=== PATIENT | male | born 1965 | race American Indian/Alaskan Native ===

== ENCOUNTER 2019-02-03 16:05 | Emergency (ER) | payer SELFPAY ==
--- NOTE | 2019-02-03 17:09 | Event Note ---
ED Screening Note Date of service: 02/03/19 Time: 17:07 ED Screening Note: This is a 53 y.o. M. that presents to the ER with left sided facial swelling and pain for 2-3 days. Patient states he was originally having dental pain on the left side a few months ago. PMH HTN This initial assessment/diagnostic orders/clinical plan/treatment(s) is/are subject to change based on patients health status, clinical progression and re- assessment by fellow clinical providers in the ED. Further treatment and workup at subsequent clinical providers discretion. Patient/guardian urged not to elope from the ED as their condition may be serious if not clinically assessed and managed. Initial orders include:
--- NOTE | 2019-02-03 18:41 | Emergency Department Report ---
HPI - General Chief Complaint: Medical Clearance Time Seen by Provider: 02/03/19 17:07 - HPI HPI: Room 36 The patient is a 53-year-old male presenting with a chief complaint of tooth pain/facial pain and headache. Patient states he's had pain along his upper left teeth intimately for 2 months. Patient states last night he developed severe pain along the left maxillary sinus with radiation to the same tooth. Patient states she also developed headache and gives his headache score of 8/10. Patient states he noticed some facial swelling over the left maxillary sinus. Patient is to nausea and occasional vomiting for the past 3-4 weeks. ED Past Medical Hx - Past Medical History Previous Medical History?: No Additional medical history: sinus infection - Surgical History Past Surgical History?: Yes Additional Surgical History: back - Family History Family history: no significant - Social History Smoking Status: Never Smoker Substance Use Type: None (denies illicit drug use) - Medications Home Medications: Home Medications Medication Instructions Recorded Confirmed Last Taken Type Amoxicillin [Amoxicillin TAB] 875 mg PO BID #14 tablet 02/03/19 Unknown Rx HYDROcodone/APAP 5-325 [Meridian 1 - 2 each PO Q6HR PRN #14 tablet 02/03/19 Unknown Rx 5/325] Ibuprofen [Motrin 800 MG tab] 800 mg PO Q8HR PRN #20 tablet 02/03/19 Unknown Rx ED Review of Systems ROS: Stated complaint: FACE SWELLING/HEADACHES/HBP Other details as noted in HPI Constitutional: no symptoms reported Eyes: denies: eye pain ENT: other (facial pain) Respiratory: no symptoms reported Cardiovascular: denies: chest pain Endocrine: no symptoms reported Gastrointestinal: denies: abdominal pain Genitourinary: denies: dysuria Musculoskeletal: denies: back pain Neurological: headache Physical Exam - Physical Exam Vital Signs: Vital Signs 02/03/19 16:10 Temperature 97.8 F Pulse Rate 75 Respiratory 18 Rate Blood Pressure 134/98 [Right] O2 Sat by Pulse 99 Oximetry Physical Exam: GENERAL: The patient is well-developed well-nourished male lying on stretcher not appearing to be in acute distress. [] HEENT: Normocephalic. Atraumatic. Extraocular motions are intact. There is left maxillary tenderness to palpation. Tenderness to palpation Approximately tooth #11 with evidence of filling. There is no gingival erythema or swelling appreciated NECK: Supple. No meningitic signs are noted. There is no adenopathy noted. CHEST/LUNGS: Clear to auscultation. There is no respiratory distress noted. HEART/CARDIOVASCULAR: Regular. There is no tachycardia. There is no gallop rub or murmur. ABDOMEN: Abdomen is soft, nontender. Patient has normal bowel sounds. There is no abdominal distention. SKIN: There is no rash. There is no edema. There is no diaphoresis. NEURO: The patient is awake, alert, and oriented. The patient is cooperative. The patient has no focal neurologic deficits. The patient has normal speech. Cranial nerves II through XII grossly intact, no drift MUSCULOSKELETAL: There is no evidence of acute injury. ED Course Vital Signs 02/03/19 16:10 Temperature 97.8 F Pulse Rate 75 Respiratory 18 Rate Blood Pressure 134/98 [Right] O2 Sat by Pulse 99 Oximetry ED Medical Decision Making - Radiology Data Radiology results: report reviewed (CT head), image reviewed (CT head) [facility] [address] [place] [address] Cat Scan Report Signed Patient: TONI NANCE JR MR#: [id number] : 1965 Acct:[id number] Age/Sex: 53 / M ADM Date: 02/03/19 Loc: ED Attending Dr: Ordering Physician: VIRGINIA FAITH MD Date of Service: 02/03/19 Procedure(s): CT head/brain wo con Accession Number(s): [id number] cc: VIRGINIA FAITH MD CT HEAD WITHOUT CONTRAST INDICATION: headache. TECHNIQUE: All CT scans at this location are performed using CT dose reduction for ALARA by means of automated exposure control. COMPARISON: CT 11/09/2014. FINDINGS: HEMORRHAGE: None. EXTRA-AXIAL SPACES: Normal in size and morphology for the patient's age. VENTRICULAR SYSTEM: Normal in size and morphology for the patient's age. BRAIN PARENCHYMA: No acute findings. MIDLINE SHIFT OR HERNIATION: None. ORBITS: Normal as visualized. SOFT TISSUES OF HEAD: Normal. CALVARIUM: Normal. VISUALIZED PARANASAL SINUSES AND MASTOID AIR CELLS: Clear. ADDITIONAL FINDINGS: None. IMPRESSION: 1. No acute intracranial abnormality. Signer Name: Matthew Felix MD Signed: 02/03/2019 7:50 PM Workstation Name: [id number] Transcribed By: ERASTO Dictated By: Matthew Felix MD Electronically Authenticated By: Matthew Felix MD Signed Date/Time: 02/03/191949 DD/ 47 TD/TT: - Differential Diagnosis dental Amada, cranial mass, CHF Critical care attestation.: If time is entered above; I have spent that time in minutes in the direct care of this critically ill patient, excluding procedure time. ED Disposition Clinical Impression: Headache, Pain, dental Disposition: - TO HOME OR SELFCARE Is pt being admited?: No Does the pt Need Aspirin: No Condition: Stable Instructions: Acute Headache (ED) Prescriptions: Amoxicillin [Amoxicillin TAB] 875 mg PO BID #14 tablet Ibuprofen [Motrin 800 MG tab] 800 mg PO Q8HR PRN #20 tablet PRN Reason: Pain, Moderate (4-6) HYDROcodone/APAP 5-325 [Meridian 5/325] 1 - 2 each PO Q6HR PRN #14 tablet PRN Reason: Pain Referrals: [facility] [Outside] - 3-5 Days ROGER SHAFFER MD [Staff Physician] - 3-5 Days (Dr Shaffer is a primary physician. Please follow up with him to be established as a patient) Time of Disposition: 20:03
[2019-02-03 19:49] VITALS: BP 141/93
--- NOTE | 2019-02-03 19:54 | Cat Scan Report ---
CT HEAD WITHOUT CONTRAST INDICATION: headache. TECHNIQUE: All CT scans at this location are performed using CT dose reduction for ALARA by means of automated e xposure control. COMPARISON: CT 11/09/2014. FINDINGS: HEMORRHAGE: None. EXTRA-AXIAL SPACES: Normal in size and morphology for the patient's age. VENTRICULAR SYSTEM: Normal in size and morphology for the patient's age. BRAIN PARENCHYMA: No acute findings. MIDLINE SHIFT OR HERNIATION: None. ORBITS: Normal as visualized. SOFT TISSUES OF HEAD: Normal. CALVARIUM: Normal. VISUALIZED PARANASAL SINUSES AND MASTOID AIR CELLS: Clear. ADDITIONAL FINDINGS: None. IMPRESSION: 1. No acute intracranial abnormality. Signer Name: Matthew Felix MD Signed: 02/03/2019 7:50 PM Workstation Name: [id number]
== END 2019-02-03 20:26 | disposition home or self-care (01) ==
LOC: ED 16:05
DX: K08.89 Other specified disorders of teeth and supporting structures (principal); Z79.899 Other long term (current) drug therapy
CPT/HCPCS: 70450; 99283